=== PATIENT | female | born 1945 | race Caucasian/White ===

== ENCOUNTER 2024-03-14 08:22 | Outpatient (CLI) | payer OTHER ==
[2024-03-12 13:03] LABS: ALANINE AMINOTRANSFERASE 20 U/L (12-78); ALBUMIN 3.7 G/DL (3.4-5.0); ALKALINE PHOSPHATASE 60 IU/L (46-116); ANION GAP 8 (8-16); ASPARTATE AMINO TRANSFERASE 28 U/L (10-37); BILIRUBIN,TOTAL 0.7 MG/DL (0.1-1.0); BLOOD UREA NITROGEN 10 MG/DL (7-18); BUN/CREATININE RATIO 9.8 (10.0-20.0); CALCIUM 9.5 MG/DL (8.5-10.1); CHLORIDE 97 MMOL/L (99-107); CREATININE 1.02 MG/DL (0.40-0.90); GLUCOSE 101 MG/DL (70-104); POTASSIUM 3.3 MMOL/L (3.5-5.1); SODIUM 134 MMOL/L (135-145); TOTAL CARBON DIOXIDE 28.7 MMOL/L (24-32); TOTAL PROTEIN 7.5 G/DL (6.4-8.2); eGFR 52 ML/MIN
[~2024-03-14 08:22] MED LIST: ALBU8.5H17 IH; ATOR-429 PO; BISO5TAB PO; FURO-150 PO; GADOTERATE MEGLUMINE 7.5 MMOL/15 ML VIAL IV ONE; HYDR-4383 PO; LEVO100T PO; LORA0.5T PO; LOSA-415 PO; OMEP40CA21 PO; TRAZ-251 PO
[2024-03-15] MEDS ORDERED: GADOTERATE MEGLUMINE 7.5 MMOL/15 ML VIAL IV ONE (06:45)
== END 2024-03-14 23:59 | disposition home or self-care (01) ==
LOC: MRI 08:22
PROVIDERS: ATTEND Student in an Organized Health Care Education/Training Program
DX: M47.812 Spondylosis without myelopathy or radiculopathy, cervical region (principal); M48.02 Spinal stenosis, cervical region; M43.12 Spondylolisthesis, cervical region
CPT/HCPCS: 36415; 72156; 80053; A9575

== ENCOUNTER → 2024-03-25 | Outpatient (CLI) | payer OTHER ==
[~2024-03-25] MED LIST changes: -GADOTERATE MEGLUMINE 7.5 MMOL/15 ML VIAL IV ONE
[2024-03-25 09:43] LABS: BASOPHILS % (AUTO) 0.4 % (0-1); EOSINOPHILS # (AUTO) 0.1 X10'3 (0-0.9); EOSINOPHILS % (AUTO) 1.1 % (0-6); HEMATOCRIT 37.1 % (35.0-45.0); HEMOGLOBIN 12.6 g/dl (12.0-16.0); LYMPHOCYTES # (AUTO) 1.8 X10'3 (1.1-4.8); LYMPHOCYTES % (AUTO) 18.3 % (21-51); MEAN CORPUSCULAR HEMOGLOBIN 34.1 PG (27.0-31.0); MEAN CORPUSCULAR VOLUME 100.3 FL (78-98); MEAN PLATELET VOLUME 7.4 FL (7.4-10.4); MONOCYTES # (AUTO) 0.4 X10'3 (0-0.9); MONOCYTES % (AUTO) 4.4 % (2-12); NEUTROPHILS # (AUTO) 7.4 X10'3 (1.8-7.7); NEUTROPHILS % (AUTO) 75.8 % (42-75); PLATELET COUNT 218 X10'3 (140-440); RED CELL DISTRIBUTION WIDTH 13.4 % (11.5-14.5); WHITE BLOOD COUNT 9.8 X10'3 (4.5-11.0)
[2024-03-25 09:53] LABS: ALBUMIN 3.4 G/DL (3.4-5.0); ANION GAP 9 (8-16); BLOOD UREA NITROGEN 14 MG/DL (7-18); BUN/CREATININE RATIO 12.5 (10.0-20.0); CALCIUM 9.2 MG/DL (8.5-10.1); CHLORIDE 99 MMOL/L (99-107); CREATININE 1.12 MG/DL (0.40-0.90); POTASSIUM 3.7 MMOL/L (3.5-5.1); SODIUM 137 MMOL/L (135-145); TOTAL CARBON DIOXIDE 29.3 MMOL/L (24-32); eGFR 47 ML/MIN
[2024-03-25 10:05] LABS: APTT 24 SECONDS (22-32); GLUCOSE 105 MG/DL (70-104); PROTHROMBIN TIME 10.3 SECONDS (9.0-12.0)
== END | disposition home or self-care (01) ==
LOC: LAB 09:16 → EDSTATUS 03-26 08:00
PROVIDERS: ATTEND Internal Medicine Cardiovascular Disease
DX: I49.5 Sick sinus syndrome (principal); R00.1 Bradycardia, unspecified
CPT/HCPCS: 36415; 80048; 85025; 85610; 85730

== ENCOUNTER 2024-10-31 06:00 | Emergency (ER) | payer OTHER ==
[~2024-10-31] VITALS: Ht 157.5 cm; Wt 51.8 kg
[2024-10-31 06:03] VITALS: TEMP 97.6
[2024-10-31] MEDS ORDERED: HYDROcodone/acetaminophen 5mg/325mg tablet PO ONE (06:55)
--- NOTE | 2024-10-31 07:16 | Physician Documentation ---
History of Present Illness ~ Chief Complaint: Wrist pain Stated Complaint: WRIST PAIN Time Seen by MD: 06:48 OK to notify your PCP?: Yes Primary Medical Doctor: FARIBA KRISHNAN 79-year-old female patient with a history of hypertension came to the emergency room because of right wrist pain after she fell down ground level accidentally yesterday while walking. Slight abrasion of the right knee but she is ambulatory without any problems. She lives alone and she drove up to the emergency room by herself. She does not endorse any other symptoms or trauma. Tetanus within 5 years: Yes Medication Reconciliation Allergies: Coded Allergies: Penicillins (Unverified Allergy, Unknown, 10/31/24) >5 years, rash, treatment required, PEN-FAST 3 Sulfa (Sulfonamide Antibiotics) (Unverified Allergy, Unknown, 10/31/24) Scheduled Atorvastatin Calcium* (Lipitor*), 1 TABLET PO HS, (Reported) Bisoprolol Fumarate (Bisoprolol Fumarate), 1 TABLET PO DAILY, (Reported) Furosemide (Lasix), 1 TABLET PO DAILY, (Reported) Levothyroxine Sodium (Synthroid), 1 TABLET PO DAILY, (Reported) Losartan Potassium* (Cozaar*), 1 TAB PO DAILY, (Reported) Omeprazole (Prilosec), 20 MG PO QAM, (Reported) Trazodone HCl (Trazodone HCl), 1 TABLET PO HS, (Reported) Scheduled PRN Albuterol Sulfate (Proair Hfa), 2 PUFFS IH Q4H PRN for SOB or wheezing Hydrocodone Bit/Acetaminophen 5/325 MG (Shingleton 5/325 MG), 1 TAB PO Q6H PRN for pain Hydrocodone/Acetaminophen (Shingleton 5-325 Tablet), 1 TABLET PO Q4H PRN for pain, (Reported) Lorazepam (Lorazepam), 0.5 MG PO PRN PRN for AN, (Reported) Past Medical History Past Medical History: Hypertension, Pancreatitis, Graves' Disease, Hypothyroidism Patient History: ([place]) My[place] infarction Lives with: Family Lives In: Home Review of Systems ROS As stated above in the HPI, otherwise all systems are reviewed and negative. Physical Exam Vital Signs: Temperature: 97.6, Source: Temporal, Heart Rate: 78, Respiratory Rate: 15, BP: 150/98, Pulse Oximetry: 98, Weight: 51.750 Physical Exam Reviewed vital signs and they are well within normal range. Const: Not in acute cardiopulmonary distress Head: Atraumatic Eyes: Normal Conjunctiva ENT: Normal External Ears, Nose and Mouth. Moist mucous membranes Neck: Full range of motion. No meningismus Resp: Clear to auscultation bilaterally. Normal work of breathing Cardio: Regular rate and rhythm, no murmurs. Skin well perfused Abd: Soft, non-tender, non-distended. Normal bowel sounds. No rebound or guarding Skin: No petechiae or rashes. Warm and dry Back: No midline or flank tenderness Ext: No cyanosis, or edema Examination of the right wrist there is swelling by the wrist but the she is still have good reasonable movement of the right wrist. No deformities. No crepitus. Distal circulation sensation intact. Neuro: Awake and alert Psych: Normal Mood and Affect Progress Results/Orders Results/Orders Completed Orders - ELVIRA LA MD Hydrocodone/Apap 5/325mg Tab (Shingleton 5/32 (10/31/24 06:55) Ibuprofen Tablet (Motrin Tablet) (10/31/24 07:10) Acetaminophen 325mg Tablet (Tylenol Tabl (10/31/24 07:10) Vital Signs 10/31/24 10/31/24 06:03 07:58 Temp 97.6 Pulse 78 74 Resp 15 16 B/P (MAP) 150/98 148/93 Pulse Ox 98 99 Medical Decision Making Findings During the physical examination, the findings suggestive of acute life- threatening condition such as JVD, tracheal deviation, acidotic breathing, noisy stridorous breath sounds, pulses paradoxus, muffled heart sounds, unequal breath sounds, abdominal rigidity and rebound tenderness, focal neurological deficits, cool clammy skin, severe hypotension, severe tachycardia or bradycardia are absent. Local examination of the right wrist shows contusion and swelling. No clinical features or fracture. Her wrist x-ray does not reveal any fracture. We will treat as moderately severe contusion of the right wrist. DISCLAIMER Inadvertent spelling and grammatical errors,inadvertent engineering group leader errors,syntax errors, grammatical errors, and spelling errors are likely due to EMR/dictation software use and do not reflect on the overall quality of patient care. Note that the electronic time recorded on this note does not necessarily reflect the actual time of the patient encounter. Departure Disposition: 01 HOME / SELF CARE / HOMELESS Impression: Primary Impression: Contusion of wrist, right Condition: Stable Referrals: NO PRIMARY CARE PROVIDER (PCP) Prescriptions Hydrocodone Bit/Acetaminophen 5/325 MG (Shingleton 5/325 MG) 5 Mg/325 Mg Tablet 1 TAB PO Q6H PRN for pain, #14 TAB Prov: ELVIRA LA MD 10/31/24 Signature Scribe Signature: None Attestation: My dictation ELVIRA LA MD Oct 31, 2024 07:16
[2024-10-31] MEDS: acetaminophen 325mg tablet PO ONE (07:17)
[2024-10-31] MEDS: ibuprofen tablet 400 MG TABLET PO ONE (07:17)
[2024-10-31] MEDS ORDERED: HYDR-3965 PO (07:24)
--- NOTE | 2024-10-31 07:38 | RADIOLOGY REPORT ---
EXAM: DI WRIST, COMPLETE (3VW MIN) CLINICAL INDICATION: RIGHT WRIST PAIN TECHNIQUE: DI WRIST, COMPLETE (3VW MIN) Comparison: None FINDINGS/IMPRESSION: There is no evidence of acute fracture . 5mm scapholunate interval.
[2024-10-31 07:58] VITALS: BP 148/93; PULSE 74; RESP 16; O2SAT 99
== END 2024-10-31 07:58 | disposition home or self-care (01) ==
LOC: ER 06:00
DX: S60.211A Contusion of right wrist, initial encounter (principal); I10 Essential (primary) hypertension; I25.2 Old myocardial infarction; E03.9 Hypothyroidism, unspecified; Z88.0 Allergy status to penicillin; Z88.2 Allergy status to sulfonamides; Z79.899 Other long term (current) drug therapy; X58.XXXA Exposure to other specified factors, initial encounter; Y93.01 Activity, walking, marching and hiking; Y92.89 Other specified places as the place of occurrence of the external cause; Y99.8 Other external cause status
CPT/HCPCS: 73110; 99284